=== PATIENT | female | born 1990 | race African-American/Black ===

== ENCOUNTER 2022-03-26 15:26 | Emergency (ER) | payer OTHER ==
[~2022-03-26] VITALS: Ht 172.7 cm; Wt 68.0 kg
[2022-03-26 15:40] VITALS: BP 123/87
[2022-03-26 17:58] LABS: EOSINOPHILS % 4.3 % (0.0-5.0); HEMATOCRIT. 41.1 % (36.0-48.0); HEMOGLOBIN. 13.8 g/dL (12.0-16.0); LYMPHOCYTES % 42.6 % (20.0-50.0); MEAN CORPUSCULAR HEMOGLOBIN 31.1 pg (28.0-32.0); MEAN CORPUSCULAR VOLUME 92.3 fL (81.0-99.0); MEAN PLATELET VOLUME 8.3 fl (7.4-10.4); MONOCYTES % 5.7 % (2.0-8.0); NEUTROPHILS % 46.4 % (40.0-76.0); PLATELET 217 x1000/uL (130-400); RED BLOOD CELL COUNT 4.45 mill/uL (4.2-5.4); RED CELL DISTRIBUTION WIDTH 13.3 % (11.6-14.6)
[2022-03-26 18:05] LABS: CHLORIDE 108 mEq/L (98-107)
[2022-03-26 18:14] LABS: B-HCG QUANTITATIVE 196 mIU/mL (<3)
== END 2022-03-26 21:30 | disposition home or self-care (01) ==
LOC: ER 15:26
DX: O46.91 Antepartum hemorrhage, unspecified, first trimester (principal); Z3A.08 8 weeks gestation of pregnancy
CPT/HCPCS: 36415; 76801; 80053; 81025; 84702; 85025; 86850; 86900; 99284